=== PATIENT | male | born 1970 ===

== ENCOUNTER 2025-06-12 10:29 | Inpatient (IN) | payer BC, OTHER ==
[~2025-06-12] VITALS: Ht 177.8 cm; Wt 97.4 kg
[2025-06-12 15:30] VITALS: BP 123/78
[2025-06-12] MEDS ORDERED: Propofol 10mg/ml 20 ml Vial (Procedural) IV ONE (15:52)
--- NOTE | 2025-06-12 16:12 | NUR ---
ADMISSION PATIENT ARRIVES DIRECT ADMISSION FROM [facility]. PATIENT SLID OVER TO SURGICAL BED. PATIENT ALERT, ORIENTED, ANSWERING MOST QUESTIONS APPROPRIATE. VITALS STABLE. PATIENT ON RA. ORIENTED TO ROOM AND CALL LIGHT SYSTEM. WHEN ASKED ABOUT PATIENT'S ADMISSION, PATIENT BEGAN EXPLAINING HIS ADDICTION TO "WHIPPETS" AND HOW IT HAS AFFECTED HIS BRAIN, WHICH HAS IN TURN MADE HIM UNABLE TO WALK. PATIENT ALSO STATING "I TOLD THEM I WAS SICK FUCK AND THEY DIDN'T DO ANYTHING FOR ME". THIS RN INQUIRING ABOUT "SICKNESS" AND PATIENT STATED HE WAS HAVING SCIATICA PAIN THAT IS THE REASON FOR HIS CURRENT HOSPITAL STAY. PER REPORT FROM [facility] RN, PATIENT WAS TRANSFERRED TO [facility] FOR LEFT ELBOW SEPSIS. LEFT ELBOW WITH REDNESS AND SWELLING. HOSPITALIST DR. HERNADEZ AT BEDSIDE FOR EVALUATION.
[2025-06-12] MEDS ORDERED: HYDROmorphone HCl/Pf 1MG SYR IV PRN (16:35)
[2025-06-12] MEDS ORDERED: Polyethylene Glycol 3350 17 gm PO PRN (16:40)
[2025-06-12] MEDS ORDERED: Vancomycin (Pharmacy Consult) IV SCH (16:45)
[2025-06-12 17:05] LABS: Hematocrit 33.2 % (37.0-53.0); Hemoglobin 11.3 g/dL (13.5-17.5); Mean Corpuscular HGB Conc 34.0 g/dL (31.5-36.5); Mean Corpuscular Volume 93 fL (80-100); NRBC ABSOLUTE 0.00 K/mm3 (0.00-0.02); NRBC Auto 0.0 /100 WBC (0.0-0.2); Platelet Count 402 K/mm3 (150-400); RDW Coefficient Variation 12.6 % (11.7-14.2); RDW Standard Deviation 43.3 fL (35.1-46.3)
[2025-06-12] MEDS ORDERED: QUET200 PO (17:23)
[2025-06-12 17:27] LABS: Anion Gap 8.0 mmol/L (3-11); Blood Urea Nitrogen 8.0 mg/dL (8-24); CO2, Blood 25.0 mmol/L (21-32); Calcium, Blood 8.0 mg/dL (8.5-10.1); Chloride, Blood 96.0 mmol/L (98-108); Creatinine, Blood 0.35 mg/dL (0.60-1.20); Glucose, Blood 103.0 mg/dL (70-99); Potassium, Blood 4.4 mmol/L (3.5-5.5); Sodium, Blood 125.0 mmol/L (136-145)
--- NOTE | 2025-06-12 18:01 | NUR ---
SHIFT SUMMARY NO SIGNIFICANT CHANGES SINCE ADMISSION NOTE. PATIENT ALERT, ORIENTED x4. ABLE TO MAKE NEEDS KNOWN TO STAFF. TELE PLACED ON PATIENT, SR 80s PER MR TEACHER. PATIENT USING URINAL INDEPENDENTLY, ADEQUATE OUTPUT. PATIENT TOLERATING PO. PHOTOS TAKEN AND IN CHART OF BILATERAL ELBOWS. WILL REPORT TO LOGISTICS TEAM LEADER RN.
[2025-06-12 19:11] VITALS: BP 113/71
[2025-06-12 20:59] LABS: Source, Urine Clean Catch
[2025-06-12] MEDS ORDERED: Docusate Sodium/Senna 1 Tab PO SCH (21:00)
[2025-06-12] MEDS ORDERED: Lactobacil 2-S.Thermo-Bifido 1 1 Cap PO SCH (21:00)
[2025-06-12 21:02] LABS: Bilirubin, Urine Neg (Neg); Color, Urine Yellow (P-Yellow); Glucose Qualitative, Urine Neg (Neg); Ketones, Urine Neg (Neg); Leukocyte Esterase, Urine Neg (Neg); Protein, Urine Neg (Neg); Specific Gravity, Urine 1.010 (1.003-1.022); Urobilinogen, Urine NORM (Normal)
[2025-06-12 23:29] VITALS: BP 122/79
[2025-06-13 03:38] VITALS: BP 137/77
[2025-06-13 04:38] LABS: Hematocrit 35.3 % (37.0-53.0); Hemoglobin 12.3 g/dL (13.5-17.5); Mean Corpuscular HGB Conc 34.8 g/dL (31.5-36.5); Mean Corpuscular Volume 94 fL (80-100); NRBC ABSOLUTE 0.00 K/mm3 (0.00-0.02); NRBC Auto 0.0 /100 WBC (0.0-0.2); Platelet Count 416 K/mm3 (150-400); RDW Coefficient Variation 12.8 % (11.7-14.2); RDW Standard Deviation 43.4 fL (35.1-46.3)
[2025-06-13 07:25] VITALS: BP 116/87
--- NOTE | 2025-06-13 07:26 | NUR ---
NO ACUTE EVENTS OVERNIGHT. PT FILLED OUT MRI CHECKLIST. MRI CHECKLIST FAXED TO MRI BY CHARGE NURSE. PT RECEIVED IV ANTIBIOITICS AND PRN BARRERA MEDICATION ORDERED. VSS. BED LOCKED AND IN LOWEST POSITION. CALL LIGHT WITHIN REACH.
[2025-06-13 07:45] LABS: Magnesium, Blood 2.2 mg/dL (1.6-2.4)
[2025-06-13 07:47] LABS: Albumin, Blood 1.9 g/dL (3.4-5.0); Anion Gap 11 mmol/L (3-11); Blood Urea Nitrogen 8 mg/dL (8-24); CO2, Blood 24 mmol/L (21-32); Calcium, Blood 7.5 mg/dL (8.5-10.1); Chloride, Blood 98 mmol/L (98-108); Creatinine, Blood 0.43 mg/dL (0.60-1.20); Glucose, Blood 118 mg/dL (70-99); Phosphorus, Blood 3.0 mg/dL (2.5-4.9); Potassium, Blood 4.1 mmol/L (3.5-5.5); Sodium, Blood 129 mmol/L (136-145)
[2025-06-13] MEDS ORDERED: Enoxaparin 40 MG/0.4 ML SYR SC SCH (09:00)
[2025-06-13] MEDS ORDERED: Multivitamins 1 Tab PO SCH (09:00)
[2025-06-13 11:25] LABS: Vancomycin, Trough 11.8 ug/mL (5.0-10.0)
[2025-06-13 11:46] VITALS: BP 119/81
[2025-06-13] MEDS ORDERED: Ondansetron HCl 2 MG / ML 2ML Vial IV PRN (12:25)
--- NOTE | 2025-06-13 12:49 | NUR ---
PT TO MRI
[2025-06-13 16:22] VITALS: BP 121/84
--- NOTE | 2025-06-13 18:10 | NUR ---
SHIFT SUMMARY: PT HAS BEEN A&Ox4, ABLE TO MAKE NEEDS KNOWN, IS COOPERATIVE W/CARE. PT TO/FROM MRI TODAY, WAS ABLE TO STAND/PIVOT FROM BED TO RNEY WITH ENCOURAGEMENT FROM THIS RN. BLOOD CULTURE RESULTS REQUESTED AND RECEIVED FROM JERRY HIDALGO, PLACED IN CHART, CULTURES DRAWN AT THIS HOSPITAL SILL PENDING. PT DENIES SOB OR CP. PT DOES ENDORSE LOW BACK PAIN, STATES IT FEELS LIKE "SCIATICA", MEDICATED PER EMAR. PT USING URINAL IN BED. REDNESS TO BOTH ELBOWS AND KNEES NOTED, L ELBOW AND EDGARDO KNEES W/SKIN INTACT AND BLANCHABLE, R ELBOW W/INCREASED SWELLING AND OPEN SORE THAT WEEPS PURULENT DISCHARGE, WOUND CARE AND DRESSING CHANGE PERFORMED TO R ELBOW. PT RESTING IN BED W/CALL LIGHT IN REACH.
[2025-06-13 20:40] VITALS: BP 144/88
[2025-06-13] MEDS ORDERED: Magnesium Hydroxide Conc 10 ML UDC PO ONE (21:10)
[2025-06-14] MEDS ORDERED: Pantoprazole Sodium 40 MG Injection IV SCH ×2 (04:05→06:00)
[2025-06-14 04:59] LABS: BASOPHILS ABSOLUTE AUTO 0.03 K/mm3 (0.00-0.23); BASOPHILS PERCENT AUTO 0 % (0-2); EOSINOPHILS ABSOLUTE AUTO 0.04 K/mm3 (0.00-0.68); EOSINOPHILS PERCENT AUTO 1 % (0-6); Hematocrit 32.8 % (37.0-53.0); Hemoglobin 11.4 g/dL (13.5-17.5); IMMATURE GRAN ABSOLUTE AUTO 0.17 K/mm3 (0.00-0.10); IMMATURE GRAN PERCENT AUTO 2 % (0-1); LYMPHOCYTES ABSOLUTE AUTO 1.14 K/mm3 (0.84-5.20); LYMPHOCYTES PERCENT AUTO 15 % (21-46); MONOCYTES ABSOLUTE AUTO 1.01 K/mm3 (0.16-1.47); MONOCYTES PERCENT AUTO 14 % (4-13); Mean Corpuscular HGB Conc 34.8 g/dL (31.5-36.5); Mean Corpuscular Volume 92 fL (80-100); NEUTROPHILS ABSOLUTE AUTO 5.05 K/mm3 (1.96-9.15); NEUTROPHILS PERCENT AUTO 68 % (41-73); NRBC ABSOLUTE 0.00 K/mm3 (0.00-0.02); NRBC Auto 0.0 /100 WBC (0.0-0.2); Platelet Count 417 K/mm3 (150-400); RDW Coefficient Variation 12.7 % (11.7-14.2); RDW Standard Deviation 42.0 fL (35.1-46.3)
[2025-06-14 05:15] VITALS: BP 125/85
[2025-06-14 05:44] LABS: Alanine Aminotransfer (ALT/SGP 35.0 U/L (12-78); Albumin, Blood 1.8 g/dL (3.4-5.0); Albumin/Globulin Ratio 0.4 (0.8-1.8); Anion Gap 9.0 mmol/L (3-11); Aspartate Aminotrans (AST/SGOT 47.0 U/L (12-37); Bilirubin, Total 0.3 mg/dL (0.1-1.0); Blood Urea Nitrogen 11.0 mg/dL (8-24); CO2, Blood 28.0 mmol/L (21-32); Calcium, Blood 7.8 mg/dL (8.5-10.1); Chloride, Blood 99.0 mmol/L (98-108); Creatinine, Blood 0.47 mg/dL (0.60-1.20); Globulin, Blood 4.6 g/dL (2.2-4.0); Glucose, Blood 107.0 mg/dL (70-99); Potassium, Blood 3.9 mmol/L (3.5-5.5); Sodium, Blood 132.0 mmol/L (136-145); Total Protein, Blood 6.4 g/dL (6.4-8.2)
--- NOTE | 2025-06-14 07:53 | NUR ---
PT ALERT AND ORIENTED X4. ENDORSED PAIN TO RIGHT HIP AND LOWER BACK AND WAS MEDICATED THROUGH THE NIGTH. MIDLINE PLACED GOOD BLOOD RETURN. VITALS WNL. ON RA. NO C/O CHEST PAIN. PT HAD AN EPISODE WHERE HE THREW UP COFFEE GROUND EMESIS. MADE AWARE. ORDERS RECEIVED. PT ALSO MEDICATED WITH ZOFRAN. PT NOT WILLING TO AMBULATE AND NEEDS FURTHER REINFORCEMENT. PT EDUCATED ON THE BENEFTTS OF AMBULATION. PT STATES HE VERBALLY UNDERSTOOD. CALL ADKINS WITHIN REACH.
[2025-06-14 08:11] VITALS: BP 129/76
[2025-06-14] MEDS ORDERED: Protein Supplement 30 ML UD PO SCH (09:00)
[2025-06-14] MEDS ORDERED: FOLI1 PO (13:38)
[2025-06-14] MEDS ORDERED: IBUP400 PO (13:38)
[2025-06-14] MEDS ORDERED: TRAZ50 PO (13:39)
[2025-06-14 14:41] LABS: Vancomycin, Trough 16.9 ug/mL (5.0-10.0)
[2025-06-14 15:02] VITALS: BP 115/90
[2025-06-14 16:14] LABS: Prothrombin Time Results 13.9 Sec (9.7-11.5)
--- NOTE | 2025-06-14 18:00 | NUR ---
SHIFT SUMMARY PATIENT ALERT AND ORIENTED. PATIENT EASILY LABILEE WITH MOOD. PATIENT REQUESTING PAIN MEDS WHEN AWAKE. SLEEPING BETWEEN DOSING. PATIENT EXTREMELY INCONTINENT OF URINE PRIOR TO GOING TO CT. PATIENT USING URINAL PRIOR. PATIENT RE EDUCATED RELATED TO CONDITION AND SITUATION. PATIENT VERBALIZED UNDERSTANDING BUT CONTINUES TO NEED RE EDUCATION. DRESSING CHANGED TO R ELBOW PER DR JUAREZ. PATIENT STATES THAT HE HAS NOT HAD A BM FOR 10 DAYS. MIRALAX GIVEN AND EDUCATION PROVIDED ABOUT THE IMPORTANCE OF BM. PATIENT ABLE TO MOVE ABOUT IN BED BUT PREFERS TO LAY ON HIS BACK. PATIENT STATES THAT HE HAS BEEN IN HOSPITALS FOR 30 DAYS NOW. UNSURE OF PATIENT'S ACCURACY SINCE HE WAS [facility].
[2025-06-14 19:11] VITALS: BP 140/87
[2025-06-14 23:56] VITALS: BP 122/79
[2025-06-15 04:33] VITALS: BP 120/88
--- NOTE | 2025-06-15 05:00 | NUR ---
SHIFT SUMMARY NO ACUTE CHANGES T/O NIGHT. IS A/OX4 WITH VSS. PT NPO SINCE MIDNIGHT R/T POTENTIAL SURGICAL INTERVENTION TODAY. REFUSED TO GET OOB AND ONLY AGREED TO REPOSITION X 1, RISK VS BENEFIT EDU PROVIDED. PAIN MANAGED PER EMAR. ABX INFUSED PER ORDERS. IS VOIDING IN URINAL AT BEDSIDE IND. PT IS CURRENTLY RESTING IN BED WITH EYES CLOSED, RESP EVEN/UNLABORED AND HAS CALL LIGHT IN REACH. WILL GIVE REPORT TO ONCOMING RN.
[2025-06-15 07:21] VITALS: BP 120/84
[2025-06-15] MEDS ORDERED: HYDROmorphone HCl/Pf 1MG SYR IV PRN (11:05)
[2025-06-15] MEDS ORDERED: Ketorolac Tromethamine 30mg Vial IV PRN (11:10)
[2025-06-15] MEDS ORDERED: NS 250 ML IV PRN (11:50)
[2025-06-15 14:40] VITALS: BP 117/76
[2025-06-15 19:08] VITALS: BP 121/76
--- NOTE | 2025-06-15 19:23 | NUR ---
SUMMARY; PT IS A/O, VSS. NO ACUTE CHANGE TODAY. DRESSING AT R ELBOW CHANGED PER ORDER AND CDI. ENCOURAGING MOBILITY, PT REPOSITIONED WHEN PT ALLOWED, OTHERWISE PT REFUSED TO MOVE LEGS REPORTING TOO MUCH BACK PAIN. MEDICATED PER EMAR. PT HAD BM AND BED BATH. PLAN FOR NPO AT 0000. REPORT PASSED TO BELLA CHAIREZ.
[2025-06-16] VITALS (25 sets, daily range): BP systolic 99–134; BP diastolic 68–99
--- NOTE | 2025-06-16 04:24 | NUR ---
SHIFT SUMMARY MATT WAS ALERT AND FULLY ORIENTED ON ASSESSMENT. DRESSINGS C/D/I DRESSING CHANGES ORDERS IN CHART. PT KEPT NPO FROM MIDNIGHT FOR LUCIA IN AM PT ABLE TO STAND/PIV TO BSC WITH 2P ASSISST, STATES THIS IS THE FIRST TIME HE HAS BEEN ABLE TO DO SO IN ABOUT 40 DAYS. PAIN WELL MANAGED AT THIS TIME. NO ACUTE EVENTS OR NOTED CHANGES TO PT CONDITION.
[2025-06-16 05:00] LABS: BASOPHILS ABSOLUTE AUTO 0.01 K/mm3 (0.00-0.23); BASOPHILS PERCENT AUTO 0 % (0-2); EOSINOPHILS ABSOLUTE AUTO 0.09 K/mm3 (0.00-0.68); EOSINOPHILS PERCENT AUTO 2 % (0-6); Hematocrit 28.4 % (37.0-53.0); Hemoglobin 9.6 g/dL (13.5-17.5); IMMATURE GRAN ABSOLUTE AUTO 0.06 K/mm3 (0.00-0.10); IMMATURE GRAN PERCENT AUTO 1 % (0-1); LYMPHOCYTES ABSOLUTE AUTO 1.13 K/mm3 (0.84-5.20); LYMPHOCYTES PERCENT AUTO 21 % (21-46); MONOCYTES ABSOLUTE AUTO 0.56 K/mm3 (0.16-1.47); MONOCYTES PERCENT AUTO 10 % (4-13); Mean Corpuscular HGB Conc 33.8 g/dL (31.5-36.5); Mean Corpuscular Volume 94 fL (80-100); NEUTROPHILS ABSOLUTE AUTO 3.63 K/mm3 (1.96-9.15); NEUTROPHILS PERCENT AUTO 66 % (41-73); NRBC ABSOLUTE 0.00 K/mm3 (0.00-0.02); NRBC Auto 0.0 /100 WBC (0.0-0.2); Platelet Count 366 K/mm3 (150-400); RDW Coefficient Variation 12.9 % (11.7-14.2); RDW Standard Deviation 44.0 fL (35.1-46.3)
[2025-06-16 05:52] LABS: Anion Gap 8.0 mmol/L (3-11); Blood Urea Nitrogen 9.0 mg/dL (8-24); CO2, Blood 26.0 mmol/L (21-32); Calcium, Blood 7.7 mg/dL (8.5-10.1); Chloride, Blood 106.0 mmol/L (98-108); Creatinine, Blood 0.61 mg/dL (0.60-1.20); Glucose, Blood 96.0 mg/dL (70-99); Potassium, Blood 4.2 mmol/L (3.5-5.5); Sodium, Blood 136.0 mmol/L (136-145)
[2025-06-16] MEDS ORDERED: Benzocaine Oral Spray 0.5ML UD ONE (09:00)
[2025-06-16] MEDS ORDERED: NS 1,000 ML IV ONE (09:06)
--- NOTE | 2025-06-16 09:30 | NUR ---
pt arrives to cardiac cath tech procedure room via [facility] for LUCIA procedure with anesthesia.Pt. required transfer to [facility], reports he was "unable to stand". Pt. vss upon transfer to unit. Alert and oriented, reports neuropathy to BIlat LE but denies acute pain at this time. Iv fluids connected to 20g powerglide IV at tko. awaiting dr. weller and dr. rizo with anesthesia.
--- NOTE | 2025-06-16 09:33 | NUR ---
pt to procedure at this time
--- NOTE | 2025-06-16 09:44 | NUR ---
Pt. arrives for LUCIA procedure with anes
--- NOTE | 2025-06-16 09:55 | NUR ---
Pt turned to left side and supported with pillows, side rails in place for safety. Pt. POM mask in place, Time out completed at [address] Pearson and Dr[address] Perez. Pt vss remain stable. anesthesia to sedate. see anesthesia EMAR Record.
--- NOTE | 2025-06-16 09:58 | NUR ---
Probe in at 0958 for LUCIA. Pt. sedated via anesthsia, VSS.
--- NOTE | 2025-06-16 10:08 | NUR ---
Probe out at 1008.
--- NOTE | 2025-06-16 10:23 | NUR ---
Pt awakens to verbal stimuli, conversing with out difficulty. VSS at this time post procedure. NADN. Plans for return to room 211.
--- NOTE | 2025-06-16 10:32 | NUR ---
optical coating technician at bedside.
--- NOTE | 2025-06-16 11:02 | NUR ---
PT BACK FROM PROCEDURE. REPORTS FEELING THIRSTY. DELIEVERING NURSE EDUCATED PATIENT ON TAKING IT SLOW R/T NUMBING SPRAY USED DURING PROCEDURE. PT VERBALIZES UNDERSTANDING.
[2025-06-16 14:43] LABS: Vancomycin, Trough 36.3 ug/mL (5.0-10.0)
--- NOTE | 2025-06-16 16:36 | NUR ---
SHIFT SUMMARY PT AA0X4, REPOSITIONING SELF IN BED. USING URINAL. SOME NAUSEA AND PAIN WITH LUNCH THAT RESOLVED SLOWLY, PT STATES HE FELT LIKE HE ATE TO MUCH. PAIN CONTROLLED PER EMAR. DRESSING TO R ARM CHANGED PER ORDERS. PT TOLERATED WELL, SMALL AMOUNT OF IODOFORM PACKED IN. ABX INFUSING PER EMAR.
[2025-06-16] MEDS ORDERED: CeFAZolin Sodium 2,000 MG in NS 100 ML IV SCH (18:00)
[2025-06-17 00:06] VITALS: BP 126/81
--- NOTE | 2025-06-17 04:21 | NUR ---
SHIFT SUMMARY MATT WAS ALERT AND FULLY ORIENTED ON ASSESSMENT. PT TAKEN FOR CT. PAIN IMPROVED THIS SHIFT, NO NARCOTICS NEEDED. PT ABLE TO STAND AND PIV TO BSC WITH MORE EASE THAN PREV NOC. DRESSING TO R ELBOW CHANGED PER ORDERS. NO ACUTE EVENTS OR NOTED CHANGES TO PT CONDITION.
[2025-06-17 05:43] VITALS: BP 132/88
[2025-06-17 07:18] VITALS: BP 117/80
[2025-06-17] MEDS ORDERED: Enoxaparin 40 MG/0.4 ML SYR SC SCH (11:00)
[2025-06-17 14:59] VITALS: BP 123/79
--- NOTE | 2025-06-17 16:13 | NUR ---
SHIFT SUMMARY PATIENT IS AOX4, R ELBOW DRESSING IS CHANGED, NEW PACKING, FLUSHED WITH SALINE AND MEPITEL DRESSING. PATIENT MEDICATED FOR PAIN PER EMAR. TOLERATING PO INTAKE, DENIES N/V. REPORTS PASSING FLATUS. WORKS WITH THERAPY UP TO CHAIR AND BACK TO BED 1 ASSIST WITH FWW, GB. VOIDING WELL. POWER [employer] DC'D AND SENT TO LAB FOR CX, PERIPHERAL IV OBTAINED ON LEFT FA. CALLS APPROPRIATELY. CALL LIGHT IN REACH.
[2025-06-17 20:37] VITALS: BP 125/79
[2025-06-17] MEDS ORDERED: Polyethylene Glycol 3350 17 gm PO SCH (21:00)
--- NOTE | 2025-06-18 04:39 | NUR ---
SHIFT SUMMARY MATT WAS ALERT AND FULLY ORIENTED ON ASSESSMENT. PT C/O SCIATIC PAIN AND CONSTIPATION. PT AMBULATED TO BR WITH FWW AND 2 MAX ASSIST, NO BM. NO OTHER EVENTS OR CHANGES TO PT CONDITION. DRESSING TO R ELBOW CDI.
[2025-06-18 05:02] VITALS: BP 132/80
[2025-06-18 07:45] VITALS: BP 131/88
[2025-06-18 11:11] VITALS: BP 125/90
[2025-06-18 15:55] VITALS: BP 134/86
--- NOTE | 2025-06-18 18:45 | NUR ---
SHIFT SUMMARY PATIENT IS AOX4, TOLERATING PO INTAKE, VOIDING WELL. IV ABX T/O SHIFT. UP TO CHAIR, BATH COMPLETED, MININAL ASSIST WITH GB, FWW. R ELBOW DRESSING CHANGED TODAY. MEDICATED FOR PAIN TOLERATES WELL. VSS. CALL LIGHT IN REACH.
[2025-06-18 19:42] VITALS: BP 147/89
[2025-06-18 23:21] VITALS: BP 129/72
[2025-06-19 04:55] VITALS: BP 123/87
[2025-06-19 05:05] LABS: BASOPHILS ABSOLUTE AUTO 0.02 K/mm3 (0.00-0.23); BASOPHILS PERCENT AUTO 0 % (0-2); EOSINOPHILS ABSOLUTE AUTO 0.11 K/mm3 (0.00-0.68); EOSINOPHILS PERCENT AUTO 2 % (0-6); Hematocrit 28.9 % (37.0-53.0); Hemoglobin 9.5 g/dL (13.5-17.5); IMMATURE GRAN ABSOLUTE AUTO 0.03 K/mm3 (0.00-0.10); IMMATURE GRAN PERCENT AUTO 1 % (0-1); LYMPHOCYTES ABSOLUTE AUTO 1.20 K/mm3 (0.84-5.20); LYMPHOCYTES PERCENT AUTO 22 % (21-46); MONOCYTES ABSOLUTE AUTO 0.45 K/mm3 (0.16-1.47); MONOCYTES PERCENT AUTO 8 % (4-13); Mean Corpuscular HGB Conc 32.9 g/dL (31.5-36.5); Mean Corpuscular Volume 95 fL (80-100); NEUTROPHILS ABSOLUTE AUTO 3.74 K/mm3 (1.96-9.15); NEUTROPHILS PERCENT AUTO 67 % (41-73); NRBC ABSOLUTE 0.00 K/mm3 (0.00-0.02); NRBC Auto 0.0 /100 WBC (0.0-0.2); Platelet Count 381 K/mm3 (150-400); RDW Coefficient Variation 12.9 % (11.7-14.2); RDW Standard Deviation 44.2 fL (35.1-46.3)
--- NOTE | 2025-06-19 05:33 | NUR ---
LANDSCAPING SPECIALIST SUMMARY NO ACUTE CHANGES THIS SHIFT. PT AAOX4 AND ABLE TO MAKE NEEDS KNOWN. DRESSING TO R ELBOW C/D/I, L ELBOW STILL RED WITH SOME SWELLING. US DONE TO L ELBOW YESTERDAY THAT SHOWED SOME EDEMA TO AREA. PAIN MANAGED WITH TORADOL. PT WAS ABLE TO TRANSFER HIMSELF FROM THE RECLINER TO THE BED WITH MINIMAL ASSIST. PT DID HAVE A SMALL BOWEL SMEAR AT START OF SHIFT BUT NOTHING FURTHER, BOWEL MEDS GIVEN PER ORDERS. VSS, WCTM.
[2025-06-19 05:49] LABS: Anion Gap 9 mmol/L (3-11); Blood Urea Nitrogen 8 mg/dL (8-24); CO2, Blood 24 mmol/L (21-32); Calcium, Blood 8.1 mg/dL (8.5-10.1); Chloride, Blood 109 mmol/L (98-108); Creatinine, Blood 0.57 mg/dL (0.60-1.20); Glucose, Blood 116 mg/dL (70-99); Potassium, Blood 3.6 mmol/L (3.5-5.5); Sodium, Blood 138 mmol/L (136-145)
[2025-06-19 06:27] LABS: C-REACTIVE PROTEIN, EXT RANGE <0.290 mg/dL (0.000-0.300)
[2025-06-19 07:27] VITALS: BP 97/67
[2025-06-19 15:06] VITALS: BP 132/85
--- NOTE | 2025-06-19 16:06 | NUR ---
SHIFT SUMMARY PATIENT AOX4, 1 ASSIST WITH FWW, GB. UP TO CHAIR T/O SHIFT. PATIENT MEDCIATED FOR PAIN PER EMAR. IV ABX INFUSED. VOIDING, PASSING FLATUS. MEDICATED FOR BOWEL CARE. PER EMAR. R ELBOW DRESSING CHANGED. VSS. CALL LIGHT IN REACH.
[2025-06-19 19:50] VITALS: BP 133/86
--- NOTE | 2025-06-20 05:15 | NUR ---
HEAVY MACHINERY ASSEMBLER SUMMARY NO ACUTE CHANGES THIS SHIFT. PT AAOX4 AND COOPERATIVE WITH CARE. PT DID FAIRLY WELL AMBULATING FROM THE RECLINER TO THE BED AND REQUIRED MINIMAL ASSISTANCE. MEDICATED FOR PAIN WITH TORADOL AT BEDTIME AND THAT ALLOWED PT TO SLEEP WELL THROUGH THE NIGHT. GOOD URINE OUTPUT, PT USES URINAL INDEPENDENTLY. STILL PASSING FLATUS BUT NO BM TONIGHT. VSS, WCTM
[2025-06-20 05:52] VITALS: BP 127/91
[2025-06-20 07:36] VITALS: BP 109/87
[2025-06-20 14:43] VITALS: BP 138/78
[2025-06-20 18:28] VITALS: BP 132/85
--- NOTE | 2025-06-20 18:50 | NUR ---
SHIFT SUMMARY PT A&OX4. PT ADMITTED DUE TO SEPSIS INFECTED L ELBOW. PT REPORTS PAIN, PAIN MANAGED PER EMAR. PT UP IN CHAIR THIS AM. IV ANTIBIOTIC GIVEN. PT GOT REGLAN BEFORE MEALS TODAY. PT GOT POWERGLIDE INSERTED IN YASHIRA, IT DRAWS. PT REQUESTED PERIPHERAL TO BE REMOVED ON L FA. PERIPHERAL IV REMOVED. PT IS SBA PIVOT W FWW AMD GB TO CHAIR. PT USES URINAL. VSS. DR. OTERO ORDERED ZOFRAN AND ADVIL TODAY. NO DRAINAGE PRESENT ON WOUND. PT IN BED, BED IN LOWEST POSITION, CALL LIGHT IN REACH.
[2025-06-20 23:54] VITALS: BP 122/68
--- NOTE | 2025-06-21 04:35 | NUR ---
PHARMACY INTAKE TECHNICIAN SUMMARY NO ACUTE CHANGES THIS SHIFT. PT AAOX4 AND PLEASANT. MEDICATED FOR PAIN FOR CONTINUED R HIP PAIN PER JAN. CONTINUING ORDERED ABX, NEW POWERGLIDE INFUSES WITH NO ISSUE. PT ABLE TO WALK INTO THE BATHROOM WITH ASSIST AND FINALLY HAD A LARGE BM. PT STILL WEAK WITH AMBULATION BUT IS IMPROVING. VSS, WCTM.
[2025-06-21 05:40] VITALS: BP 119/84
[2025-06-21 07:12] VITALS: BP 123/86
[2025-06-21 15:30] VITALS: BP 119/81
[2025-06-21 18:32] VITALS: BP 122/76
--- NOTE | 2025-06-21 18:44 | NUR ---
SHIFT SUMMARY PATIENT A/OX4, ABLE TO MAKE NEEDS KNOWN. PLEASANT AND COOPERATIVE WITH CARE. WOUND CARE DISCONTINUED TO RIGHT ELBOW PER DR. OTERO WOUND IS OPEN TO AIR, SMALL DRY SCAB. PATIENT PARTICIPATED IN PHYSICAL THERAPY TODAY. CONTINUES TO COMPLAIN OF PAIN TO RIGHT HIP PRIMARILY, PRN DILAUDID AND IBUPROFEN ADMINSITERED PER JAN. GABAPENTIN INCREASED THIS SHIFT. PLAN TO [facility]CHARGE TO [facility] [place] WHEN A BED IS AVAILABLE. IV ANTIBIOTICS INFUSED PER JAN. NO OTHER CONCERNS AT THIS TIME.
[2025-06-22 04:02] VITALS: BP 123/83
--- NOTE | 2025-06-22 06:03 | NUR ---
SHIFT SUMMARY NO ACUTE CHANGES OVERNIGHT, PT HAS RESTED T/O THE SHIFT. PAIN MANAGED PER EMAR. PT IS STILL VERY WEAK. REQUIRES GAIT BELT/WALKER, NEEDS VERBAL CUES. IV ANTIBIOTICS CONTINUED PER EMAR. VITALS STABLE. PLAN OF CARE UNCHANGED. AWAITING DC TO SNF FOR OUTPT ANTIBIOTICS. BED IN LOWEST POSITION, CALL LIGHT WITHIN REACH.
[2025-06-22 07:21] VITALS: BP 122/89
[2025-06-22 14:43] VITALS: BP 134/80
--- NOTE | 2025-06-22 16:33 | NUR ---
SHIFT SUMMARY PATIENT IS AOX4, HERE FOR IV ABX, AWAITING SNF PLACEMENT. POWER GLIDE TO YASHIRA, DRAWS AND DRESSING WAS CHANGED TODAY. R ELBOW IS LYNDA. PATIENT IS A 1 ASSIST WITH FWW. REPORTS PAIN IS GETTING BETTER. TOLERATING PO INTAKE AND HAVING BM'S. VOIDING WELL. ABLE TO MAKE NEEDS KNOWN. VSS.
[2025-06-22 19:28] VITALS: BP 133/85
--- NOTE | 2025-06-23 04:01 | NUR ---
SHIFT SUMMARY MATT WAS ALERT AND FULLY ORIENTED ON ASSESSMENT. PT PAIN IS SLOWLY IMPROVING IS MOBILLITY. PT MEDICALLY STABLE AND AWAITING PLACEMENT. DENIES NEW OR WORSENING CONDITIONS. NO ACUTE EVENTS TONIGHT, NO NOTED CHANGES TO PT. PT ELBOW APPEARS TO BE GREATLY IMPROVED FROM CARE LAST WEEK.
[2025-06-23 04:18] VITALS: BP 125/89
[2025-06-23 07:40] VITALS: BP 125/84
--- NOTE | 2025-06-23 14:18 | NUR ---
dc"d at 1400 NO ACUTE CHANGES POST ASSUMPTION NOTE. VSS. IVPULLED OUT. BELONGINGS PACKED UP. DC INSTRUCTION PROVIDED TO PT. SISTER IN ROOM TO PICK PT UP. MEDICATIONS SENT TO [facility]. PT OUT TO CAR W/O COMPLICATIONS.
[2025-06-23 14:49] VITALS: BP 135/86
--- NOTE | 2025-06-23 18:03 | NUR ---
SUMMARY NO ACUTE CHANGES THIS SHIFT. VSS. AXO4. PAIN CONTROLLED WITH PO PAIN MEDICATION. PT WALKED AROUND 2 SEPARATE OCCASIONS TODAY - PT STATES IMPROVEMENT TO STRENGTH AND STAMINA. POWERGLIDE PATENT. ABX INFUSING AT DIFFERENT TIMES T/O SHIFT. PT STATES MILD NUMBNESS AT TIMES IN DIFFERENT PARTS OF BODY BUT SELF LIMITING. OTHERWISE, PT RESTING IN CHAIR/BED. TOLERATING PO INTAKE WELL. VOIDING AND HAD BM.
[2025-06-23 19:11] VITALS: BP 128/84
[2025-06-24 03:11] VITALS: BP 126/87
--- NOTE | 2025-06-24 05:03 | NUR ---
SHIFT SUMMARY MATT WAS ALERT AND FULLY ORIENTED ON ASSESSMENT. PT CONDITION UNCHANGED FROM PREVIOUS NOC SHIFT. PT CONTINUES TO REGAIN MOBILLITY. PAIN MODERATELY WELL MANAGED. NO ACUTE EVENTS TONIGHT. PT DOES HAVE CONCERNS ABOUT INCREASING SENSATIONS OF NEUROPATHY TO BLE'S. NO ACUTE EVENTS TONIGHT.
[2025-06-24 07:06] VITALS: BP 118/80
[2025-06-24 13:12] VITALS: BP 135/95
[2025-06-24 14:46] VITALS: BP 135/81
--- NOTE | 2025-06-24 17:06 | NUR ---
SUMMARY NO ACUTE CHANGES THIS SHIFT. VSS. PT AMBULATED AROUND UNIT WELL WITH FWW, GB, SBA. PT STATES CONTINUED IMPROVEMENT. TOELRATING PO DIET WELL. ABX INFUSING OFF AND ON T/O SHIFT. SEROQUEL EVENING DOSE DECREASED TO 100MG PER PT REQUEST TO CUT DOWN ON POTENTIAL OF TARDIVE DISKINESIA - PT CONCERNED ABOUT THIS POSSIBILITY. PT ALSO QUESTIONING GABAPENTINS EFFECTS ON HIM, STATES HE FEELS NUMBNESS TO HIS CHEST/EXTREMITIES AFTER GABAPENTIN CONSUMPTION BUT PT UNAWARE IF THIS IS IZZY RELATED OR NOT - VITAL SIGNS OBTAINED DURING A "NUMBNESS / HEAVINESS EIPSODE" VS UNCHANGED. [T STATES ITS SELF LIMITING. OTHERWISE, PT UP AND OUT OF CHAIR A FEW TIMES TODAY AND HAS A POSITIVE OUTLOOK ON HOSPITAL TENURE.
[2025-06-24 19:16] VITALS: BP 139/88
--- NOTE | 2025-06-24 23:46 | NUR ---
RN TO ROOM TO ROUND; PT WITH C/O PAIN. RN TO MEDICATE PER EMAR.
--- NOTE | 2025-06-25 02:15 | NUR ---
RN TO ROOM; PT REQUESTS ASSISTANCE WITH OPENING CHEESE. RN OPENED PT CHEESE. CALL LIGHT WITHIN REACH.
[2025-06-25 03:10] VITALS: BP 138/90
--- NOTE | 2025-06-25 04:10 | NUR ---
SHIFT SUMMARY NO ACUTE EVENTS DURING NOC SHIFT. PT HAD BM PRIOR TO 2200 AND DECLINED GOING FOR A WALK AFTER AMBULATING TO THE RESTROOM AND BACK. PT DECLINED GABAPENTIN DUE TO REPORTED "HEAVINESS" HE HAS BEEN HAVING AND IS ATTEMPTING TO ASSESS IF GABAPENTIN IS THE CAUSE. PT MEDICATED FOR PAIN PER MAR HOWEVER PT HAVING SOME INCREASED PAIN WITH MOVEMENT.
[2025-06-25 07:22] VITALS: BP 135/86
[2025-06-25 14:32] VITALS: BP 148/89
[2025-06-25 15:00] VITALS: BP 152/90
--- NOTE | 2025-06-25 17:26 | NUR ---
PATIENT IS ALERT AND ORIENTED AND COOPERATIVE WITH CARE. ON RA. USES THE URINAL INDEPENDENTLY. UP TO THE BATHROOM AND RECLINER WITH 1PA. PATIENT C/O 6/10 RIGHT LEG PAIN AND NUMBNESS AND TINGLING, MEDICATED PER EMAR. PATIENT IS ANXIOUS ABOUT GOING HOME, THINKING HIS PAIN WONT BE UNDER CONTROL. EDUCATION GIVEN TO THE PATIENT ABOUT HIS NEW MEDICATIONS TODAY. VSS. NO NEW CONCERNS. WILL CONTINUE TO MONITOR
[2025-06-25 19:31] VITALS: BP 121/89
[2025-06-26 03:23] VITALS: BP 111/75
--- NOTE | 2025-06-26 03:45 | NUR ---
RN TO ROOM TO ROUND; PT SLEEPING WITH EQUAL AND UNLABORED BREATHING. CALL LIGHT WITHIN REACH.
--- NOTE | 2025-06-26 04:13 | NUR ---
SHIFT SUMMARY PT WITH NO ACUTE CHANGES DURING NOC SHIFT. PT GOT MORE SLEEP DURING THIS NOC SHIFT THAT PREVIOUS. PT REPORTS MORE RELIEF FROM CLONIDINE AND LYRICA THAN PREVIOUSLY PRESCRIBED GABAPENTIN. PT INDEPENDENT WITH URINAL AT BEDSIDE. PT AMBULATED WITH STAFF AT THE BEGINNING OF SHIFT. PT TOLERATING PO FLUIDS.
[2025-06-26 07:40] VITALS: BP 101/71
[2025-06-26 13:41] VITALS: BP 110/78
[2025-06-26 14:48] VITALS: BP 103/71
--- NOTE | 2025-06-26 18:08 | NUR ---
PT SUMMARY; NO ACUTE CHANGE FOR THE SHIFT. PLAN TO COMPLETE IV ABO DOSING TIL THE [address] LALA AND DC TO HOME WITH HOME HEALTH. VITALS HAS BEEN STABLE. PT ABLE TO AMBULATE IN THE HALLWAY VIA WALKER. PAIN MEDS GIVEN PER EMAR, PER PT'S REQUESTS. UP IN THE RECLINER FOR MEALS. RECEIVED A SHOWER THIS MORNING. PT CALLS APPROPRIATELY AND ABLE TO MAKE NEEDS KNOWN. WILL CONTINUE TO MONITOR
[2025-06-26 19:13] VITALS: BP 117/76
--- NOTE | 2025-06-27 03:51 | NUR ---
SHIFT SUMMARY NO ACUTE EVENTS OVERNIGHT. PT CONTINUES TO REPORT THAT MEDICATION CHANGES HAVE IMPROVED HIS PAIN AND MOBILITY. PT STATES THAT HE WOULD LIKE TO HAVE VITAMIN B12 LABS DRAWN AND POSSIBLE INJECTIONS IF DEFICIENT BECAUSE THE LAST FACILITY WAS GIVING INJECTIONS PRIOR TO DISCHARGE. PT INQUIRES IF MUSCLE RELAXERS COULD BE ADDED TO HIS REGIMEN PRIOR TO DISCHARGE. PT ALSO QUESTIONS IF IT IS POSSIBLE THAT HE HAS URIC ACID CRYSTALS FORMING IN HIS FEET AND IF REDUCING HIS SUGAR INTAKE WILL HELP HIS PAIN. PT REPORTS HE WILL BE REDUCING SUGAR INTAKE. POWERGLIDE YASHIRA SL; ANTIBIOTICS INFUSED PER EMAR. PT AMBULATED IN CREWS AT THE BEGINNING OF SHIFT AND IS INDEPENDENT WITH URINAL.
[2025-06-27 04:13] VITALS: BP 107/71
[2025-06-27 07:30] VITALS: BP 122/76
[2025-06-27 14:55] VITALS: BP 115/80
--- NOTE | 2025-06-27 17:25 | NUR ---
.SHIFT SUMMARY NO ACUTE CHANGES T/O SHIFT. PT TOLERATING PO INTAKE WELL. STATES MEDICATIONS HAVE BEEN MANAGING PAIN. AMBULATED 2X T/O SHIFT. VSS, ABLE TO MAKE NEEDS KNOWN. POWER [employer], ABLE TO DRAW BLOOD. CALL LIGHT W/IN REACH.
[2025-06-27 19:54] VITALS: BP 118/78
--- NOTE | 2025-06-28 03:53 | NUR ---
SHIFT SUMMARY NO ACUTE EVENTS OVERNIGHT. PT MEDICATED PER EMAR FOR PAIN/ANTIBIOTICS. PT ON ROOM AIR, INDEPENDENT WITH URINAL, FWW FOR AMBULATION TO RESTROOM. PT REPORTS AGITATION AND PAIN THIS SHIFT THAT IS INCREASED FROM DAY SHIFT. MERLIN AC IS PATENT.
[2025-06-28 04:45] VITALS: BP 126/83
[2025-06-28 06:36] LABS: BASOPHILS ABSOLUTE AUTO 0.02 K/mm3 (0.00-0.23); BASOPHILS PERCENT AUTO 0 % (0-2); EOSINOPHILS ABSOLUTE AUTO 0.19 K/mm3 (0.00-0.68); EOSINOPHILS PERCENT AUTO 3 % (0-6); Hematocrit 27.1 % (37.0-53.0); Hemoglobin 9.0 g/dL (13.5-17.5); IMMATURE GRAN ABSOLUTE AUTO 0.03 K/mm3 (0.00-0.10); IMMATURE GRAN PERCENT AUTO 1 % (0-1); LYMPHOCYTES ABSOLUTE AUTO 1.59 K/mm3 (0.84-5.20); LYMPHOCYTES PERCENT AUTO 29 % (21-46); MONOCYTES ABSOLUTE AUTO 0.53 K/mm3 (0.16-1.47); MONOCYTES PERCENT AUTO 10 % (4-13); Mean Corpuscular HGB Conc 33.2 g/dL (31.5-36.5); Mean Corpuscular Volume 94 fL (80-100); NEUTROPHILS ABSOLUTE AUTO 3.20 K/mm3 (1.96-9.15); NEUTROPHILS PERCENT AUTO 58 % (41-73); NRBC ABSOLUTE 0.00 K/mm3 (0.00-0.02); NRBC Auto 0.0 /100 WBC (0.0-0.2); Platelet Count 248 K/mm3 (150-400); RDW Coefficient Variation 13.1 % (11.7-14.2); RDW Standard Deviation 45.1 fL (35.1-46.3)
[2025-06-28 07:02] LABS: Alanine Aminotransfer (ALT/SGP 7.0 U/L (12-78); Albumin, Blood 2.5 g/dL (3.4-5.0); Albumin/Globulin Ratio 0.6 (0.8-1.8); Anion Gap 7.0 mmol/L (3-11); Aspartate Aminotrans (AST/SGOT 24.0 U/L (12-37); Bilirubin, Total 0.2 mg/dL (0.1-1.0); Blood Urea Nitrogen 11.0 mg/dL (8-24); CO2, Blood 28.0 mmol/L (21-32); Calcium, Blood 8.7 mg/dL (8.5-10.1); Chloride, Blood 105.0 mmol/L (98-108); Creatinine, Blood 0.63 mg/dL (0.60-1.20); Globulin, Blood 4.3 g/dL (2.2-4.0); Glucose, Blood 110.0 mg/dL (70-99); Potassium, Blood 3.7 mmol/L (3.5-5.5); Sodium, Blood 136.0 mmol/L (136-145); Total Protein, Blood 6.8 g/dL (6.4-8.2)
[2025-06-28 07:06] VITALS: BP 112/76
[2025-06-28 07:22] LABS: Uric Acid, Blood 6.0 mg/dL (3.5-7.2)
[2025-06-28 14:58] VITALS: BP 127/86
--- NOTE | 2025-06-28 15:57 | NUR ---
SUMMARY: NO ACUTE CHANGE TODAY. IV ANTIBIOTICS INFUSED. POWERGLIDE WNL. PT AGREED TO TAKE A WALK IN THE CREWS, REPORTS GETTING STRONGER. MEDICATED PER EMAR FOR PAIN, NO ACUTE CONCERNS. PT USES CALL LIGHT
[2025-06-28 19:23] VITALS: BP 119/77
[2025-06-29 03:06] VITALS: BP 93/55
--- NOTE | 2025-06-29 04:51 | NUR ---
SHIFT SUMMARY NOC. PT ADMIT FOR CELLULITIS AND S/P I&D OF ELBOW. PT A/O X4, PT AMBULATES TO BATHROOM WITH 1 ASSIST, BETTYW, MATHIEU. PT MEDICATED FOR PAIN WITH MINIMAL REPORTED RELIEF. PT VOIDING URINE. PT MAKES NEEDS KNOWN, CALL LIGHT IN REACH.
[2025-06-29 05:27] VITALS: BP 95/56
[2025-06-29 07:36] VITALS: BP 110/69
--- NOTE | 2025-06-29 13:17 | NUR ---
report called to [facility].
--- NOTE | 2025-06-29 14:01 | NUR ---
discharge pt left for [facility] at this time. all belongings with patient. ambulating well with walker during shift. painful with ambulation but moving well. escorted out via transport wheelchair.
== END 2025-06-29 14:01 | disposition short-term general hospital (02) | DRG 854 ==
LOC: SURS 10:29
PROVIDERS: Family Medicine; Internal Medicine; ADMIT Internal Medicine
PROC: 3E03329 Introduction of Other Anti-infective into Peripheral Vein, Percutaneous Approach (ICD-10-PCS; 2025-06-12)
PROC: 0M930ZZ Drainage of Right Elbow Bursa and Ligament, Open Approach (ICD-10-PCS; principal; 2025-06-13)
PROC: B24BZZ4 Ultrasonography of Heart with Aorta, Transesophageal (ICD-10-PCS; 2025-06-16)
DX: A41.01 Sepsis due to Methicillin susceptible Staphylococcus aureus (principal); E87.1 Hypo-osmolality and hyponatremia; M60.08 Infective myositis, other site; K56.0 Paralytic ileus; L03.113 Cellulitis of right upper limb; L02.413 Cutaneous abscess of right upper limb; L03.114 Cellulitis of left upper limb; M54.40 Lumbago with sciatica, unspecified side; F31.9 Bipolar disorder, unspecified; E87.6 Hypokalemia; F19.10 Other psychoactive substance abuse, uncomplicated; M46.1 Sacroiliitis, not elsewhere classified; G89.29 Other chronic pain; K31.89 Other diseases of stomach and duodenum; M46.58 Other infective spondylopathies, sacral and sacrococcygeal region; M71.121 Other infective bursitis, right elbow; T41.0X5A Adverse effect of inhaled anesthetics, initial encounter; Z79.1 Long term (current) use of non-steroidal anti-inflammatories (NSAID); Z72.0 Tobacco use
CPT/HCPCS: 36415; 71260; 72158; 73070; 74177; 76882; 80048; 80053; 80069; 80202; 81003; 82607; 82746; 83735; 84550; 85025; 85027; 85610; 85651; 86140; 87040; 87070; 87075; 87077; 87147; 87186; 87205; 93306; 93308; 93312; 93325; 93970; 97110; 97116; 97163; 97530; A9270; A9579; C1751; J0690; J1171; J1650; J1885; J2405; J2470; J2704; J3373; J7030; J7050; Q9967